=== PATIENT | female | born 1940 | race Caucasian/White ===

== ENCOUNTER 2018-09-18 17:35 | Emergency (ER) | payer MEDICARE, SELFPAY ==
[2018-09-18 17:44] VITALS: BP 151/74; PULSE 94; RESP 17; TEMP 36.9; O2SAT 98
[2018-09-18 18:10] LABS: Strep Grp A by PCR Rapid Negative
--- NOTE | 2018-09-18 21:02 | ED.URI ---
HPI - URI/Sore Throat <Rosalia Sainz PA-C - Last Filed: 09/18/18 22:39> General Chief Complaint: Upper Respiratory Symptoms Stated Complaint: sore throat,cough, states woosey Time Seen by Provider: 09/18/18 20:42 Source: patient Mode of arrival: ambulatory Limitations: no limitations History of Present Illness HPI Narrative: This 78-year-old female comes to ED secondary to onset of phlegm in her throat and scratchiness this morning along with dry cough. She states that her ribs were somewhat sore from coughing but aspirin has helped that. She denies fever, chills, or sweats. She denies wheeze or dyspnea. She denies body aches or headache. She states that she does feel more tired than usual, did not walk her dog 2 miles this morning as she usually does. She states that she did not get her flu shot this season, otherwise up-to-date on vaccines, no recent travel or specific exposures. No new rash or other complaints on systems review. Related Data Previous Rx's Medication Instructions Recorded oseltamivir [Tamiflu] 75 mg PO Q12H 5 Days #9 cap 09/18/18 Review of Systems <Rosalia Sainz PA-C - Last Filed: 09/18/18 22:39> Review of Systems ROS Unobtainable: All systems reviewed & are unremarkable except as noted in HPI and below PFSH <Rosalia Sainz PA-C - Last Filed: 09/18/18 22:39> Medical History Hyperlipidemia (Chronic) Hypothyroidism (Chronic) No pertinent family history (Chronic) Surgical History No pertinent past surgical history (Chronic) Social History Smoking Status: Never smoker Social History Smoking Status: Never smoker Comment: Quit tobacco in 1966 Exam <OCTAVIO Guzman Last Filed: 09/18/18 22:39> Narrative Exam Narrative: GENERAL APPEARANCE: Patient sitting comfortably, in no distress. HEAD: No sinus TTP. EYES: PERRL, EOMI. EARS: Normal auditory canals, TMS intact with normal light reflexes. ORAL CAVITY: Normal oropharynx. THROAT: Mild erythema with some PND, no exudate NECK/THYROID: Neck supple, full range of motion, no cervical lymphadenopathy. LUNGS: Clear to auscultation bilaterally, dry cough on exam. HEART: RRR without murmur, nl S1, S2, no S3 or S4. DERMATOLOGIC: No exanthem Initial Vital Signs Initial Vital Signs: Vital Signs Temperature 98.4 F 09/18/18 17:44 Pulse Rate 94 H 09/18/18 17:44 Respiratory Rate 17 09/18/18 17:44 Blood Pressure 151/74 H 09/18/18 17:44 Pulse Oximetry 98 09/18/18 17:44 <DO Jose Manuel Roque Last Filed: 09/19/18 05:05> Initial Vital Signs Initial Vital Signs: Vital Signs Temperature 98.4 F 09/18/18 17:44 Pulse Rate 94 H 09/18/18 17:44 Respiratory Rate 17 09/18/18 17:44 Blood Pressure 151/74 H 09/18/18 17:44 Pulse Oximetry 98 09/18/18 17:44 Course <Rosalia Sainz PA-C - Last Filed: 09/18/18 22:39> Orders Ordered: Discontinued Medications Oseltamivir Phosphate (Tamiflu) 75 mg PO NOW ONE Stop: 09/18/18 21:20 Last Admin: 09/18/18 21:23 Dose: 75 mg Vital Signs - 8 hr 09/18/18 21:28 Temperature 98.2 F Pulse Rate 76 Respiratory Rate 18 Blood Pressure [Left Arm] 150/70 H Pulse Oximetry 98 <DO Jose Manuel Roque Last Filed: 09/19/18 05:05> Orders Ordered: Discontinued Medications Oseltamivir Phosphate (Tamiflu) 75 mg PO NOW ONE Stop: 09/18/18 21:20 Last Admin: 09/18/18 21:23 Dose: 75 mg Vital Signs - 8 hr 09/18/18 21:28 Temperature 98.2 F Pulse Rate 76 Respiratory Rate 18 Blood Pressure [Left Arm] 150/70 H Pulse Oximetry 98 MDM - URI/Sore Throat <OCTAVIO Guzman Last Filed: 09/18/18 22:39> Lab Data Lab Results 09/18/18 09/18/18 Range/Units 17:40 17:40 Influenza A & B (PCR) Positive, type a A (Negative) Group A Strep (PCR) Negative <DO Jose Manuel Roque Last Filed: 09/19/18 05:05> Lab Data Lab Results 09/18/18 09/18/18 Range/Units 17:40 17:40 Influenza A & B (PCR) Positive, type a A (Negative) Group A Strep (PCR) Negative Discharge Plan Departure Patient Disposition: Home Clinical Impression: Influenza Discharge Date/Time: 09/18/18 22:00 Interventions: ED Discharge Assessment Last Done: 09/18/18 22:02 Instructions: DI for Influenza -- Adult Activity Restrictions/Additional Instructions: Your test for the flu is positive today, so you will likely feel tired and have the cough and respiratory symptoms for a week or even 10-14 days. It is also common to have fever and body aches. Please rest at home, take Tylenol as needed for fever and aches and you can also take your aspirin or preferred anti-inflammatory as needed since that helped your rib pain earlier today. You can use lozenges as needed for the cough, and you may wish to try some [id number] Mucinex, which is an expectorant, to help with the chest congestion. You may want to add [id number] Zyrtec (cetirizine) 10 mg once daily as well to help with the postnasal drip. As we talked about, you should return to the closest ED if you have new symptoms such as shortness of breath, or high fever not responding to medicines, or any other acutely worsening symptoms. I have sent the prescription for the remainder of the Tamiflu medicine for you to [facility] in [place]. 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 Prescriptions: New oseltamivir [Tamiflu] 75 mg capsule 75 mg PO Q12H 5 Days Qty: 9 RF: 0 Referrals: Kelsea Johnson MD [Primary Care Provider] - <Rachael Santana DO - Last Filed: 09/19/18 05:05> [facility] ED Attending Mahin Attestation: I was immediately available in the department for consultation. Documentation has been reviewed. I agree with assessment and plan.
[2018-09-18] MEDS: OSELTAMIVIR 75 MG CAPSULE PO (21:23)
[2018-09-18 21:28] VITALS: BP 150/70; PULSE 76; RESP 18; TEMP 36.8; O2SAT 98
--- NOTE | 2018-09-18 21:41 | ED_ITS ---
HPI - URI/Sore Throat <Rosalia Sainz PA-C - Last Filed: 09/18/18 22:39> General Chief Complaint: Upper Respiratory Symptoms Stated Complaint: sore throat,cough, states woosey Time Seen by Provider: 09/18/18 20:42 Source: patient Mode of arrival: ambulatory Limitations: no limitations History of Present Illness HPI Narrative: This 78-year-old female comes to ED secondary to onset of phlegm in her throat and scratchiness this morning along with dry cough. She states that her ribs were somewhat sore from coughing but aspirin has helped that. She denies fever, chills, or sweats. She denies wheeze or dyspnea. She denies body aches or headache. She states that she does feel more tired than usual, did not walk her dog 2 miles this morning as she usually does. She states that she did not get her flu shot this season, otherwise up-to-date on vaccines, no recent travel or specific exposures. No new rash or other complaints on systems review. Related Data Previous Rx's Medication Instructions Recorded oseltamivir [Tamiflu] 75 mg PO Q12H 5 Days #9 cap 09/18/18 Review of Systems <Rosalia Sainz PA-C - Last Filed: 09/18/18 22:39> Review of Systems ROS Unobtainable: All systems reviewed & are unremarkable except as noted in HPI and below PFSH <Rosalia Sainz PA-C - Last Filed: 09/18/18 22:39> Medical History Hyperlipidemia (Chronic) Hypothyroidism (Chronic) No pertinent family history (Chronic) Surgical History No pertinent past surgical history (Chronic) Social History Smoking Status: Never smoker Social History Smoking Status: Never smoker Comment: Quit tobacco in 1966 Exam <OCTAVIO Guzman Last Filed: 09/18/18 22:39> Narrative Exam Narrative: GENERAL APPEARANCE: Patient sitting comfortably, in no distress. HEAD: No sinus TTP. EYES: PERRL, EOMI. EARS: Normal auditory canals, TMS intact with normal light reflexes. ORAL CAVITY: Normal oropharynx. THROAT: Mild erythema with some PND, no exudate NECK/THYROID: Neck supple, full range of motion, no cervical lymphadenopathy. LUNGS: Clear to auscultation bilaterally, dry cough on exam. HEART: RRR without murmur, nl S1, S2, no S3 or S4. DERMATOLOGIC: No exanthem Initial Vital Signs Initial Vital Signs: Vital Signs Temperature 98.4 F 09/18/18 17:44 Pulse Rate 94 H 09/18/18 17:44 Respiratory Rate 17 09/18/18 17:44 Blood Pressure 151/74 H 09/18/18 17:44 Pulse Oximetry 98 09/18/18 17:44 <DO Jose Manuel Roque Last Filed: 09/19/18 05:05> Initial Vital Signs Initial Vital Signs: Vital Signs Temperature 98.4 F 09/18/18 17:44 Pulse Rate 94 H 09/18/18 17:44 Respiratory Rate 17 09/18/18 17:44 Blood Pressure 151/74 H 09/18/18 17:44 Pulse Oximetry 98 09/18/18 17:44 Course <Rosalia Sainz PA-C - Last Filed: 09/18/18 22:39> Orders Ordered: Discontinued Medications Oseltamivir Phosphate (Tamiflu) 75 mg PO NOW ONE Stop: 09/18/18 21:20 Last Admin: 09/18/18 21:23 Dose: 75 mg Vital Signs - 8 hr 09/18/18 21:28 Temperature 98.2 F Pulse Rate 76 Respiratory Rate 18 Blood Pressure [Left Arm] 150/70 H Pulse Oximetry 98 <DO Jose Manuel Roque Last Filed: 09/19/18 05:05> Orders Ordered: Discontinued Medications Oseltamivir Phosphate (Tamiflu) 75 mg PO NOW ONE Stop: 09/18/18 21:20 Last Admin: 09/18/18 21:23 Dose: 75 mg Vital Signs - 8 hr 09/18/18 21:28 Temperature 98.2 F Pulse Rate 76 Respiratory Rate 18 Blood Pressure [Left Arm] 150/70 H Pulse Oximetry 98 MDM - URI/Sore Throat <OCTAVIO Guzman Last Filed: 09/18/18 22:39> Lab Data Lab Results 09/18/18 09/18/18 Range/Units 17:40 17:40 Influenza A & B (PCR) Positive, type a A (Negative) Group A Strep (PCR) Negative <DO Jose Manuel Roque Last Filed: 09/19/18 05:05> Lab Data Lab Results 09/18/18 09/18/18 Range/Units 17:40 17:40 Influenza A & B (PCR) Positive, type a A (Negative) Group A Strep (PCR) Negative Discharge Plan Departure Patient Disposition: Home Clinical Impression: Influenza Discharge Date/Time: 09/18/18 22:00 Interventions: ED Discharge Assessment Last Done: 09/18/18 22:02 Instructions: DI for Influenza -- Adult Activity Restrictions/Additional Instructions: Your test for the flu is positive today, so you will likely feel tired and have the cough and respiratory symptoms for a week or even 10-14 days. It is also common to have fever and body aches. Please rest at home, take Tylenol as needed for fever and aches and you can also take your aspirin or preferred anti- inflammatory as needed since that helped your rib pain earlier today. You can use lozenges as needed for the cough, and you may wish to try some [id number] Mucinex, which is an expectorant, to help with the chest congestion. You may want to add [id number] Zyrtec (cetirizine) 10 mg once daily as well to help with the postnasal drip. As we talked about, you should return to the closest ED if you have new symptoms such as shortness of breath, or high fever not responding to medicines, or any other acutely worsening symptoms. I have sent the prescription for the remainder of the Tamiflu medicine for you to [facility] in [place]. 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 Prescriptions: New oseltamivir [Tamiflu] 75 mg capsule 75 mg PO Q12H 5 Days Qty: 9 RF: 0 Referrals: Kelsea Johnson MD [Primary Care Provider] - <Rachael Santana DO - Last Filed: 09/19/18 05:05> [facility] ED Attending Mahin Attestation: I was immediately available in the department for consultation. Documentation has been reviewed. I agree with assessment and plan.
== END 2018-09-18 22:00 | disposition home or self-care (01) ==
PROVIDERS: Emergency Medicine; Emergency Provider Internal Medicine; Family Provider Family Medicine; PCP Family Medicine
DX: J11.1 Influenza due to unidentified influenza virus with other respiratory manifestations (principal)
CPT/HCPCS: 87400; 87651; 99282; 99283

== ENCOUNTER 2018-12-07 07:23 | Emergency (ER) | payer MEDICARE, SELFPAY ==
[2018-12-07 07:30] VITALS: BP 172/63; PULSE 64; RESP 18; TEMP 36.2; O2SAT 97; BMI 23.0
[2018-12-07] MEDS: TET,DIPH,PERTUSS(ACELL),VAC/PF 0.5 ML SYRINGE IM (08:06)
--- NOTE | 2018-12-07 20:03 | ED.UPPEXIN ---
HPI - Extremity Injury (Upper) General Chief Complaint: Extremity Injury, Upper Stated Complaint: cut left ring finger/bleeding x1 day Time Seen by Provider: 12/07/18 07:34 Source: patient Mode of arrival: ambulatory Limitations: no limitations History of Present Illness HPI narrative: Patient states that yesterday evening, she was using scissors to cut twine, and that the scissors slipped and struck the tip of her left ring finger, avulsing a small bit of skin and soft tissue. Patient states she placed a dressing around the finger, but that this morning, the dressing was blood soaked and her wound was still oozing. No other wounds, no other complaints at this time. Patient is not on any anticoagulants. Related Data Allergies Allergy/AdvReac Type Severity Reaction Status Date / Time No Known Drug Allergies Allergy Verified 12/07/18 07:30 Review of Systems Constitutional Denies chills, Denies fever(s), Denies lethargy and Denies weakness Eyes Denies change in vision, Denies eye discharge, Denies irritation and Denies loss of vision ENT Ears, Nose, Mouth, and Throat: Denies change in voice, Denies neck pain and Denies sore throat Cardiovascular Denies chest pain, Denies irregular heart rhythm, Denies lightheadedness, Denies palpitations, Denies dyspnea, Denies dyspnea on exertion and Denies orthopnea Respiratory Denies cough, Denies dyspnea, Denies dyspnea on exertion and Denies wheezing Gastrointestinal Gastrointestinal: Denies abdominal pain, Denies change in bowel habits, Denies diarrhea, Denies nausea and Denies vomiting Genitourinary Denies hematuria, Denies flank pain, Denies urinary incontinence and Denies urinary urgency Musculoskeletal Denies neck pain Integumentary/Breasts Denies pruritus, Denies erythema and Denies rash Comments: Wound left ring finger tip Neurologic Denies confusion, Denies loss of vision and Denies weakness Psychiatric Denies anxiety, Denies confusion, Denies depression, Denies homicidal ideation and Denies suicidal ideation Endocrine Denies palpitations Hematologic/Lymphatic Denies easy bruising Allergic/Immunologic Denies wheezing [facility] Medical History Hyperlipidemia (Chronic) Hypothyroidism (Chronic) No pertinent family history (Chronic) Surgical History No pertinent past surgical history (Chronic) Social History Smoking Status: Never smoker Social History Smoking Status: Never smoker Exam Initial Vital Signs Initial Vital Signs: Vital Signs Temperature 97.2 F L 12/07/18 07:30 Pulse Rate 64 12/07/18 07:30 Respiratory Rate 18 12/07/18 07:30 Blood Pressure 172/63 H 12/07/18 07:30 Pulse Oximetry 97 12/07/18 07:30 Const General: cooperative and well developed Nutritional Appearance: well nourished Orientation: alert, awake, oriented x3 and not confused HENWV Head: normocephalic and atraumatic Ears: external ears normal Nose: external nose normal and No nasal discharge Face and sinus: face symmetric and No dry mucous membranes Mouth: oral mucosae normal and moist mucous membranes Teeth and gingiva: dentition normal Throat: tonsils normal and uvula midline Eyes General: appearance normal, both eyes and all related structures Eyelids: eyelids normal Conjunctivae: conjunctivae normal Sclera: sclerae normal Pupils: PERRL EOM: EOM intact bilaterally Neck Neck: normal visual inspection, trachea midline, No lymphadenopathy, No midline deformity and No JVD Lymphatic: No lymphedema Chest Chest: normal inspection of the chest Resp Effort & Inspection: normal respiratory effort, able to speak in complete sentences, no respiratory distress and no use of accessory muscles Auscultation: clear to auscultation bilaterally Cardio Rate: regular rate Rhythm: regular rhythm Heart Sounds: no click, no gallops, no murmurs and no rubs Pulses: normal peripheral pulses GI Inspection: non-distended Palpation: soft, no hepatosplenomegaly, No guarding, No pulsatile mass and No tender Auscultation: normal bowel sounds Back/Spine/Pelvis Back: No CVA tenderness Cervical Spine: cervical ROM normal and No pain with cervical ROM Thoracic/Lumbar Spine: thoracic and lumbar spine normal to inspection Skin General: no rashes or lesions noted, No jaundice and No petechiae Other: Patient has a tissue avulsion of approximately 8 mm x 4 mm on the tip of her left ring finger. Mild oozing of blood is noted. Neuro General: alert, oriented x3, gait normal and no focal motor deficits Speech: speech normal Extrem General: full ROM, no clubbing, cyanosis or edema, no pedal edema and no calf tenderness Psych Appearance: well kempt Mental Status: mental status grossly normal Attitude: cooperative Thought Content: normal and suicidality Judgment: judgment good Course Course Narrative: The patient's finger was dressed with Gelfoam and a gauze-Coban outer dressing, with good hemostasis. We discussed wound care, as well as the usual indications for return. Orders Ordered: Discontinued Medications Diphtheria/Tetanus/Acell Pertussis (Adacel) 0.5 ml IM .ONCE ONE Stop: 12/07/18 07:33 Last Admin: 12/07/18 08:06 Dose: 0.5 ml MDM - Extremity Injury (Upper) Medical Records Attestation: I reviewed the patient's medical records. Discharge Plan Departure Patient Disposition: Home Clinical Impression: Avulsion of soft tissue Discharge Date/Time: 12/07/18 08:49 Interventions: ED Discharge Assessment Last Done: 12/07/18 08:48 Instructions: DI for Avulsion Laceration (Not Requiring Sutures) Activity Restrictions/Additional Instructions: Please keep the dressing on for at least the next couple of days. After this, as long as you are not doing any further bleeding, you may remove the outer dressing, but leave the Gelfoam, the material over the wound, in place. You may put a Band-Aid over this until the Gelfoam falls off on its own. This should happen in the next several days. You should keep the wound clean and dry. Referrals: Kelsea Johnson MD [Primary Care Provider] -
== END 2018-12-07 08:49 | disposition home or self-care (01) ==
PROVIDERS: Emergency Provider Emergency Medicine; Family Provider Family Medicine; PCP Family Medicine
DX: S61.215A Laceration without foreign body of left ring finger without damage to nail, initial encounter (principal); W26.8XXA Contact with other sharp object(s), not elsewhere classified, initial encounter; Z23 Encounter for immunization
CPT/HCPCS: 90471; 99282; 99283; 90715

== ENCOUNTER 2019-06-05 09:53 | Emergency (ER) | payer MEDICARE, SELFPAY ==
[2019-06-05 10:06] VITALS: BP 179/80; PULSE 64; RESP 12; TEMP 36.6; O2SAT 98; BMI 22.3
--- NOTE | 2019-06-05 10:13 | ED_ITS ---
HPI - Chest Pain General Chief Complaint: Chest Pain Stated Complaint: irregular heartbeats whats to be checked Time Seen by Provider: 06/05/19 10:02 Source: patient Mode of arrival: Ambulatory Limitations: no limitations History of Present Illness HPI narrative: Patient is a 79-year-old female who presents with heart palpitations and chest pain. It has been ongoing for last 2-3 days. She says she notices at stands up and it lasts for about 45 minutes. The chest tightness does not go anywhere she has no radiation of pain she really just feels like her heart is pounding. She denies any dizziness or lightheadedness no syncopal episodes. She has no focal deficits no weakness. She currently does not have a ny chest pain or palpitations. Onset (ago): day(s) Duration: intermittent Onset: other (After she stands) Related Data Allergies Allergy/AdvReac Type Severity Reaction Status Date / Time No Known Drug Allergies Allergy Verified 06/05/19 10:10 Review of Systems Review of Systems ROS Unobtainable: All systems reviewed & are unremarkable except as noted in HPI and below Constitutional Constitutional: Denies chills, Denies fever(s), Denies lethargy and Denies weakness Eyes Eyes: Denies change in vision, Denies eye discharge, Denies irritation and Denies loss of vision ENT Ears, Nose, Mouth, and Throat: Denies change in voice, Denies neck pain and Denies sore throat Cardiovascular Cardiovascular: Reports as per HPI, Reports chest pain, Denies irregular heart rhythm, Reports lightheadedness, Reports palpitations, Denies dyspnea, Denies dyspnea on exertion and Denies orthopnea Respiratory Respiratory: Denies cough, Denies dyspnea, Denies dyspnea on exertion and Denies wheezing Gastrointestinal Gastrointestinal: Denies abdominal pain, Denies change in bowel habits, Denies diarrhea, Denies nausea and Denies vomiting Genitourinary Genitourinary: Denies hematuria, Denies flank pain, Denies urinary incontinence and Denies urinary urgency Musculoskeletal Musculoskeletal: Denies neck pain Integumentary/Breasts Skin/Breast: Denies pruritus, Denies erythema, Denies rash and Denies wounds Neurologic Neurologic: Denies loss of vision and Denies weakness Endocrine Endocrine: Reports palpitations Allergic/Immunologic Allergic/Immunologic: Denies wheezing Patient History Medical History Hyperlipidemia (Chronic) Hypothyroidism (Chronic) No pertinent family history (Chronic) Surgical History No pertinent past surgical history (Chronic) Social History Smoking Status: Never smoker alcohol intake frequency: 0-2 drinks per day Substance Use Type: does not use Exam Initial Vital Signs Initial Vital Signs: Vital Signs Temperature 97.9 F 06/05/19 10:06 Pulse Rate 64 06/05/19 10:06 Respiratory Rate 12 06/05/19 10:06 Blood Pressure 179/80 H 06/05/19 10:06 Pulse Oximetry 98 06/05/19 10:06 GENERAL: Alert pleasant well-appearing elderly female no acute distress HEENT: Head atraumatic,EOMI, pupils reactive, face symmetric CARDIOVASCULAR: Regular rate and rhythm without murmurs, rubs or gallops. RESPIRATORY: Breath sounds equal bilaterally, no wheezes rales or rhonchi. ABDOMEN: Soft, nontender. Normoactive bowel sounds all 4 quadrants. No guarding or rebound. EXTREMITIES: Normal range of motion, no clubbing or edema. Neurovascularly intact NEUROLOGICAL: Alert and oriented x4.Normal gait and speech. Cranial nerves II through XII grossly intact. SKIN: Warm, dry, no laceration, no petechiae, no rashes or lesions. Course Orders Ordered: ED Orders 06/05/19 10:05 Complete Blood Count AUTO DIFF Stat Comprehensive Metabolic Panel Stat Lipase Stat Troponin & CK Cardiac Panel Stat EKG-12 Lead Routine 06/05/19 10:16 XR chest 1V Stat 06/05/19 11:51 Urine Culture Stat Urine Microscopic Stat Discontinued Medications Sodium Chloride (Normal Saline 0.9%) 1,000 mls @ 1,000 mls/hr IV CONT JASWINDER Last Infusion: 06/05/19 11:57 Dose: 0 mls/hr Documented by: Admin: 06/05/19 10:30 Dose: 1,000 mls/hr Documented by: KOLBY Vital Signs Vital signs: Vital Signs - 8 hr 06/05/19 10:06 06/05/19 12:01 Temperature 97.9 F Pulse Rate 64 59 L Respiratory Rate 12 14 Blood Pressure 179/80 H 155/69 H Pulse Oximetry 98 98 MDM - Chest Pain Lab Data Attestation: I reviewed the patient's lab results. Result diagrams: 06/05/19 10:05 06/05/19 10:05 Labs: Lab Results 06/05/19 06/05/19 06/05/19 Range/Units 10:05 10:05 11:51 WBC 7.2 (4.5-11.0) X10^3/uL RBC 4.59 (4.0-5.2) X10^6/uL Hgb 14.6 (12.0-16.0) g/dL Hct 43.8 (36-46) % MCV 95.5 (80-100) fL MCH 31.8 (26-34) PG MCHC 33.2 (30-36) % RDW 13.4 (11.6-14.8) % Plt Count 240 (150-400) X10^3/uL Neut % (Auto) 62.2 (50-75) % Lymph % (Auto) 25.6 (25-40) % [place] % (Auto) 10.2 (3-14) % Eos % (Auto) 1.3 L (2-4) % Baso % (Auto) 0.7 (0-2) % Neut # (Auto) 4500 (0006-5921) /uL Lymph # (Auto) 1800 (7621-8080) /uL [place] # (Auto) 700 (0-900) /uL Eos # (Auto) 100 (0-450) /uL Baso # (Auto) 100 (0-100) /uL Sodium 140 (137-145) mmol/L Potassium 4.4 (3.4-5.1) mmol/L Chloride 101 (98-107) mmol/L Carbon Dioxide 31 (22-32) mmol/L BUN 30 H (7-17) mg/dL Creatinine 0.80 (0.52-1.04) mg/dL Estimated GFR > 60.0 (>60) mL/min BUN/Creatinine Ratio 37.5 H (6-22) Glucose 115 H (80-110) mg/dL Calcium 10.1 (8.4-10.2) mg/dL Total Bilirubin 0.6 (0.2-1.3) mg/dL AST 32 (14-36) IU/L ALT 19 (<35) IU/L Alkaline Phosphatase 81 (38-126) U/L Total Creatine Kinase 63 (30-135) U/L CK-MB (CK-2) TNP CK-MB (CK-2) Rel Index TNP Troponin I < 0.012 (0.01-0.034) ng/mL Total Protein 7.6 (6.3-8.2) g/dL Albumin 4.7 (3.5-5.0) g/dL Globulin 2.9 (1.7-4.1) g/dL Albumin/Globulin Ratio 1.6 (1.0-2.8) Lipase 216 (23-300) U/L Urine RBC 0-1/hpf (0-5/HPF) Urine WBC 0-1/hpf (0-5/HPF) Urine Bacteria None seen (None) Ur Culture Indicated? Specimen cultured Urine Dip Bedside Urine Glucose Negative Bedside Urine Bilirubin - Negative Bedside Urine Ketone - Negative Urine Specific [place] 1.010 Bedside Urine Occult Blood - Negative Bedside Urine pH 6.0 Bedside Urine Protein - Negative Bedside Urine Urobilinogen - Negative Bedside Urine Nitrite - Negative Bedside Urine Leukocytes + 70 Esterase Imaging Data Chest x-ray: Radiologist's impression: PROCEDURE: XR CHEST 1V INDICATIONS: palpitations TECHNIQUE: One view of the chest was acquired. COMPARISON: None. FINDINGS: Surgical changes and devices: None. Lungs and pleura: Lungs are clear. No pleural effusions or pneumothorax. Mediastinum: Mediastinal contours appear normal. Heart size is normal. Bones and chest wall: No suspicious bony lesions. Age-appropriate bony degenerative changes are seen. Overlying soft tissues appear unremarkable. IMPRESSION: Unremarkable portable chest study for age. Dictated by: Adam Moreno M.D. on 06/05/2019 at 9:50 ECG Data Attestation: I personally reviewed and interpreted this ECG as follows: Prior ECG tracings: available for review Interpretation: Normal sinus rhythm rate [address] elevations or depressions she does have right bundle branch block similar to previous EKG in 2016 MDM Narrative Medical decision making narrative: Patient shows no sign of arrhythmia on monitor. Her symptoms are not consistent with cardiac. I do recommend that she have a Holter monitor as an outpatient. She may require further outpatient testing. She is feeling better after some IV fluids. I discussed all findings with the patient, Education has been performed regarding treatment plan, diagnosis, warning signs and symptoms and all concerns have been addressed. Verbally agree with and understood all of the above. Discharge Plan Departure Patient Disposition: Home Clinical Impression: Atypical chest pain, Heart palpitations Discharge Date/Time: 06/05/19 12:02 Instructions: DI for Atypical Chest Pain Activity Restrictions/Additional Instructions: *You have been diagnosed with atypical chest pain, heart palpitations *What to do: You may require Holter monitor to monitor your heart palpitations. Please discuss this with her PCP may also require further cardiac workup to assess chest pain *Continue to take medications as directed *Follow up with your primary care provider in 2-3 days *Return to ER if you should have increasing heart palpitations lightheadedness, passing out or any new, worsening or concerning symptoms Referrals: Kelsea Johnson MD [Primary Care Provider] -
--- NOTE | 2019-06-05 10:16 | DI.RAD.S_ITS ---
PROCEDURE: XR CHEST 1V INDICATIONS: palpitations TECHNIQUE: One view of the chest was acquired. COMPARISON: None. FINDINGS: Surgical changes and devices: None. Lungs and pleura: Lungs are clear. No pleural effusions or pneumothorax. Mediastinum: Mediastinal contours appear normal. Heart size is normal. Bones and chest wall: No suspicious bony lesions. Age-appropriate bony degenerative changes are seen. Overlying soft tissues appear unremarkable. IMPRESSION: Unremarkable portable chest study for age. Dictated by: Adam Moreno M.D. on 06/05/2019 at 9:50 Approved by: Adam Moreno M.D. on 06/05/2019 at 9:50
[2019-06-05 10:23] LABS: Add Manual Diff / Slide Review NO; Basophils Absolute Auto 100 /uL (0-100); Basophils Percent Auto 0.7 % (0-2); Eosinophils Absolute Auto 100 /uL (0-450); Eosinophils Percent Auto 1.3 % (2-4); Hematocrit 43.8 % (36-46); Hemoglobin 14.6 g/dL (12.0-16.0); Lymphocytes Absolute Auto 1800 /uL (1100-4500); Lymphocytes Percent Auto 25.6 % (25-40); Mean Corpuscular HGB Conc 33.2 % (30-36); Mean Corpuscular Hemoglobin 31.8 PG (26-34); Mean Corpuscular Volume 95.5 fL (80-100); Monocytes Absolute Auto 700 /uL (0-900); Monocytes Percent Auto 10.2 % (3-14); Neutrophils Absolute Auto 4500 /uL (1500-7000); Neutrophils Percent Auto 62.2 % (50-75); Platelet Count 240 X10^3/uL (150-400); Red Blood Cell Count 4.59 X10^6/uL (4.0-5.2); Red Cell Distribution Width 13.4 % (11.6-14.8); White Blood Cell Count 7.2 X10^3/uL (4.5-11.0)
[2019-06-05 10:28] LABS: Alanine Aminotransferase 19 IU/L (<35); Albumin 4.7 g/dL (3.5-5.0); Albumin Globulin Ratio 1.6 (1.0-2.8); Alkaline Phosphatase 81 U/L (38-126); Aspartate Aminotransferase 32 IU/L (14-36); BUN Creatinine Ratio 37.5 (6-22); Bilirubin Total 0.6 mg/dL (0.2-1.3); Blood Urea Nitrogen 30 mg/dL (7-17); Calcium 10.1 mg/dL (8.4-10.2); Carbon Dioxide 31 mmol/L (22-32); Chloride 101 mmol/L (98-107); Creatine Kinase 63 U/L (30-135); Estimated Glomerular Filt Rate > 60.0 mL/min (>60); Globulin 2.9 g/dL (1.7-4.1); Glucose 115 mg/dL (80-110); HEMOLYSIS 28 (0-50); Lipase 216 U/L (23-300); Potassium 4.4 mmol/L (3.4-5.1); Sodium 140 mmol/L (137-145); Total Protein 7.6 g/dL (6.3-8.2)
[2019-06-05] MEDS: SODIUM CHLORIDE 0.9% 1,000 ML 1000 ML IV (10:30)
[2019-06-05 10:40] LABS: Troponin I < 0.012 ng/mL (0.01-0.034)
[2019-06-05 12:00] LABS: Bacteria Urine None Seen
[2019-06-05 12:01] VITALS: BP 155/69; PULSE 59; RESP 14; O2SAT 98
[2019-06-05 12:11] LABS: Culture Indicated Urine Specimen Cultured; RBC Urine 0-1/HPF (0-5/HPF); WBC Urine 0-1/HPF (0-5/HPF)
== END 2019-06-05 12:02 | disposition home or self-care (01) ==
PROVIDERS: Emergency Provider Emergency Medicine; Family Provider Family Medicine; PCP Family Medicine
DX: R07.89 Other chest pain (principal); R00.2 Palpitations
CPT/HCPCS: 36415; 71045; 80053; 81003; 81015; 82550; 83690; 84484; 85025; 87086; 93005; 96360; 99283; 99285